=== PATIENT | female | born 1995 | race Caucasian/White ===

== ENCOUNTER 2020-02-10 03:21 | Inpatient (IN) | payer BC ==
[~2020-02-10 03:21] MED LIST: Bupivacaine 0.25% 10 ML SDV ONE
[2020-02-10] MEDS ORDERED: Oxytocin/Lactated Ringers 10 UNIT/1,000 ML BAG IV SCH (03:30)
[2020-02-10] MEDS ORDERED: Lidocaine 1% 50 ML MDV INJECT ONE (03:30)
[2020-02-10] MEDS ORDERED: Nalbuphine 10 MG/ML Syringe IVPUSH PRN (03:30)
[2020-02-10] MEDS ORDERED: Calcium Carbonate 500 MG Tab.Chew PO PRN (03:30)
[2020-02-10] MEDS ORDERED: Sodium Chloride 0.9% 10 ML Syringe FLUSH PRN ×2 (03:30→05:56)
[2020-02-10] MEDS: Lactated Ringers 1,000 ML IV SCH ×3 (04:00→05:11)
[2020-02-10] MEDS ORDERED: fentaNYL 100 MCG/2 ML SDV ONE (04:11)
[2020-02-10] MEDS ORDERED: ePHEDrine 50 MG/ML SDV IVPUSH PRN ×2 (04:31→08:32)
[2020-02-10] MEDS ORDERED: Bupivacaine/fentaNYL/NS 100 ML Bag EPIDUR PRN (04:31)
[2020-02-10] MEDS ORDERED: diphenhydrAMINE 50 MG/ML SDV IVPUSH PRN ×2 (04:31→08:32)
[2020-02-10] MEDS ORDERED: fentaNYL 100 MCG/2 ML SDV EPIDUR PRN (04:31)
--- NOTE | 2020-02-10 04:52 | PCM.PREANE ---
Preanesthetic Assessment - Procedure Proposed Procedure: spinal for labor and delivery - Anesthesia/Transfusion/Family Hx Anesthesia History: No Prior Anesthesia Family History of Anesthesia Reaction: No Transfusion History: No Prior Transfusion(s) - Review of Systems General: No Symptoms Pulmonary: No Symptoms Cardiovascular: No Symptoms Gastrointestinal: No Symptoms Neurological: No Symptoms Other: Reports: Depression, Anxiety - Physical Assessment Vital Signs: 147/95 86 20 99% Height: 5 ft 4 in Weight: 79.832 kg ASA Class: 2 Mental Status: Alert & Oriented x3 Airway Class: Mallampati = 1 Dentition: Reports: Normal Dentition Thyro-Mental Finger Breadths: 3 Mouth Opening Finger Breadths: 3 ROM/Head Extension: Full Lungs: Clear to Auscultation, Normal Respiratory Effort Cardiovascular: Regular Rate, Regular Rhythm, No Murmurs - Lab Values: Laboratory Last Values WBC 12.73 K/mm3 (3.98-10.04) H 02/10/20 03:41 RBC 4.76 M/mm3 (3.98-5.22) 02/10/20 03:41 Hgb 13.8 gm/dl (11.2-15.7) 02/10/20 03:41 Hct 41.9 % (34.1-44.9) 02/10/20 03:41 MCV 88.0 fl (79.4-94.8) 02/10/20 03:41 MCH 29.0 pg (25.6-32.2) 02/10/20 03:41 MCHC 32.9 g/dl (32.2-35.5) 02/10/20 03:41 RDW Std Deviation 46.3 fL (36.4-46.3) 02/10/20 03:41 Plt Count 205 K/mm3 (182-369) 02/10/20 03:41 MPV 10.8 fl (9.4-12.3) 02/10/20 03:41 Neut % (Auto) 74.5 % (34.0-71.1) H 02/10/20 03:41 Lymph % (Auto) 16.0 % (19.3-51.7) L 02/10/20 03:41 [place] % (Auto) 8.7 % (4.7-12.5) 02/10/20 03:41 Eos % (Auto) 0.4 (0.7-5.8) L 02/10/20 03:41 Baso % (Auto) 0.2 % (0.1-1.2) 02/10/20 03:41 Neut # (Auto) 9.48 K/mm3 (1.56-6.13) H 02/10/20 03:41 Lymph # (Auto) 2.04 K/mm3 (1.18-3.74) 02/10/20 03:41 [place] # (Auto) 1.11 K/mm3 (0.24-0.36) H 02/10/20 03:41 Eos # (Auto) 0.05 K/mm3 (0.04-0.36) 02/10/20 03:41 Baso # (Auto) 0.02 K/mm3 (0.01-0.08) 02/10/20 03:41 - Allergies Allergies/Adverse Reactions: Allergies Allergy/AdvReac Type Severity Reaction Status Date / Time No Known Allergies Allergy Verified 02/10/20 03:48 - Blood Blood Available: No - Acknowledgements Anesthesia Type Planned: Spinal Pt an Appropriate Candidate for the Planned Anesthesia: Yes Alternatives and Risks of Anesthesia Discussed w Pt/Guardian: Yes Pt/Guardian Understands and Agrees with Anesthesia Plan: Yes PreAnesthesia Questionnaire HEENT History: Reports: None Cardiovascular History: Reports: None Respiratory History: Reports: None Gastrointestinal History: Reports: GERD, Hiatal Hernia Genitourinary History: Reports: None 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 : 1 (38 weeks) Para: 0 Musculoskeletal History: Reports: None Neurological History: Reports: None Psychiatric History: Reports: Depression Endocrine/Metabolic History: Reports: None Hematologic History: Reports: None Immunologic History: Reports: None Oncologic (Cancer) History: Reports: None Dermatologic History: Reports: None - Infectious Disease History Infectious Disease History: Reports: None - Past Surgical History Head Surgeries/Procedures: Reports: None - History Comment History Comment: meds- vits and lexapro and prevacid - SUBSTANCE USE Smoking Status *Q: Never Smoker Tobacco Use Within Last Twelve Months: No Second Hand Smoke Exposure: No Days Per Week of Alcohol Use: 0 Recreational Drug Use History: No - CURRENT (IN HOUSE) MEDS Current Meds: Current Medications Calcium Carbonate/Glycine (Tums) 1,000 mg PO Q2H PRN PRN Reason: Indigestion Diphenhydramine HCl (Benadryl) 25 mg IVPUSH Q6H PRN PRN Reason: pruritis Ephedrine Sulfate (Ephedrine Sulfate) 5 mg IVPUSH ASDIRECTED PRN PRN Reason: Hypotension Fentanyl (Sublimaze) 100 mcg EPIDUR Q3H PRN PRN Reason: Pain Fentanyl/Bupivacaine HCl (Fentanyl/Bupivacaine/Ns 2 Mcg-0.125% 100 Ml) 100 ml EPIDUR ASDIRECTED PRN PRN Reason: Pain Oxytocin/Lactated Ringer's (Pitocin In Lr 10 Units/1,000 Ml) 10 unit in 1,000 mls @ 500 mls/hr IV .CONTINUOUS SEMAJ Lactated Ringer's (Ringers, Lactated) 1,000 mls @ 100 mls/hr IV ASDIRECTED SEMAJ Nalbuphine HCl (Nubain) 10 mg IVPUSH Q2H PRN PRN Reason: Pain Sodium Chloride (Saline Flush) 10 ml FLUSH ASDIRECTED PRN PRN Reason: Keep Vein Open Discontinued Medications Fentanyl (Sublimaze) Confirm Administered Dose 100 mcg .ROUTE .STK-MED ONE Stop: 02/10/20 04:12 Lidocaine HCl (Xylocaine 1%) 20 ml INJECT ONETIME ONE Stop: 02/10/20 03:31
[2020-02-10] MEDS ORDERED: Citric Acid/Sodium Citrate Solution 30 ML Cup PO ONE (05:56)
[2020-02-10] MEDS ORDERED: Azithromycin 500 MG in Sodium Chloride 0.9% 250 ML IV ONE (05:56)
[2020-02-10] MEDS ORDERED: Metoclopramide 10 MG/2 ML SDV IVPUSH ONE (05:56)
[2020-02-10] MEDS ORDERED: Metoclopramide 10 MG/2 ML SDV ONE (05:57)
[2020-02-10] MEDS ORDERED: Citric Acid/Sodium Citrate Solution 30 ML Cup ONE (05:57)
[2020-02-10] MEDS ORDERED: Lactated Ringers 1,000 ML IV SCH (06:00)
[2020-02-10] MEDS ORDERED: Ketorolac 30 MG/ML SDV ONE (06:02)
[2020-02-10] MEDS ORDERED: Ondansetron 4 MG/2 ML SDV ONE (06:02)
[2020-02-10] MEDS ORDERED: Morphine PF 1 MG/ML Amp ONE (06:02)
[2020-02-10] MEDS ORDERED: ceFAZolin 1 GM Vial ONE ×2 (06:02→06:07)
[2020-02-10] MEDS ORDERED: Propofol 200 MG/20 ML SDV ONE (06:04)
[2020-02-10] MEDS ORDERED: Succinylcholine/Sod PF 100 MG/5 ML SYRINGE IV ONE (06:05)
[2020-02-10] MEDS ORDERED: Lidocaine 1% 4 ML ONE (06:05)
[2020-02-10] MEDS ORDERED: Bupivacaine 0.5% 30 ML SDV ONE (06:10)
[2020-02-10] MEDS ORDERED: fentaNYL 250 MCG/5 ML SDV ONE (06:12)
[2020-02-10] MEDS ORDERED: fentaNYL 100 MCG/2 ML SDV IVPUSH PRN (06:14)
[2020-02-10] MEDS ORDERED: HYDROmorphone 0.5 MG/0.5 ML Syringe IVPUSH PRN (06:14)
[2020-02-10] MEDS ORDERED: Ondansetron 4 MG/2 ML SDV IVPUSH PRN ×2 (06:14→09:18)
[2020-02-10] MEDS ORDERED: Dexamethasone 4 MG/ML SDV ONE (06:32)
--- NOTE | 2020-02-10 07:10 | PCM.POSTAN ---
POST ANESTHESIA ASSESSMENT - MENTAL STATUS Mental Status: Alert, Oriented - VITAL SIGNS Vital Signs: 99% 120/96 105 14 97.1 - RESPIRATORY Respiratory Status: Respiratory Rate WNL, Airway Patent, O2 Saturation Stable, Supplemental Oxygen - CARDIOVASCULAR CV Status: Pulse Rate WNL, Blood Pressure Stable - GASTROINTESTINAL GI Status: No Symptoms - PAIN Pain Score: 0 - POST OP HYDRATION Hydration Status: Adequate & Stable
--- NOTE | 2020-02-10 07:23 | PCM.HP.2 ---
H&P History of Present Illness - General Date of Service: 02/10/20 Admit Problem/Dx: Admission Diagnosis/Problem Admission Diagnosis/Problem Active labor - History of Present Illness Initial Comments - Free Text/Narative: 24 year old at 38w2 here in active labor - Related Data Allergies/Adverse Reactions: Allergies Allergy/AdvReac Type Severity Reaction Status Date / Time No Known Allergies Allergy Verified 02/10/20 03:48 Past Medical History HEENT History: Reports: None Cardiovascular History: Reports: None Respiratory History: Reports: None Gastrointestinal History: Reports: GERD, Hiatal Hernia Genitourinary History: Reports: None 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 Musculoskeletal History: Reports: None Neurological History: Reports: None Psychiatric History: Reports: Depression Endocrine/Metabolic History: Reports: None Hematologic History: Reports: None Immunologic History: Reports: None Oncologic (Cancer) History: Reports: None Dermatologic History: Reports: None - Infectious Disease History Infectious Disease History: Reports: None - Past Surgical History Head Surgeries/Procedures: Reports: None - History Comment History Comment: meds- vits and lexapro and prevacid Social & Family History - Family History Family Medical History: Noncontributory - Tobacco Use Smoking Status *Q: Never Smoker Second Hand Smoke Exposure: No - Alcohol Use Days Per Week of Alcohol Use: 0 - Recreational Drug Use Recreational Drug Use: No H&P Review of Systems - Review of Systems: Review Of Systems: See Below General: Reports: No Symptoms HEENT: Reports: No Symptoms Pulmonary: Reports: No Symptoms Cardiovascular: Reports: No Symptoms Gastrointestinal: Reports: No Symptoms Genitourinary: Reports: No Symptoms Musculoskeletal: Reports: No Symptoms Skin: Reports: No Symptoms Psychiatric: Reports: No Symptoms Neurological: Reports: No Symptoms Hematologic/Lymphatic: Reports: No Symptoms Immunologic: Reports: No Symptoms Exam - Exam Exam: See Below - Vital Signs Vital Signs: Last Vital Signs Temp 36.2 C 02/10/20 07:04 Pulse Resp 14 02/10/20 07:04 BP 123/85 02/10/20 07:04 Pulse Ox 100 02/10/20 07:04 Weight: 79.832 kg - Exam General: Alert, Oriented, 4 HEENT: PERRLA, Hearing Intact, Mucosa Moist & [place], Nares Patent, Normal Nasal Septum, Posterior Pharynx Clear, Conjunctiva Clear, EOMI, EACs Clear, TMs Clear Neck: Supple, Trachea Midline, 2 Lungs: Clear to Auscultation, Normal Respiratory Effort Cardiovascular: Regular Rate, Regular Rhythm GI/Abdominal Exam: Normal Bowel Sounds, Soft, Non-Tender, No Organomegaly, No Distention, No Abnormal Bruit, No Mass, Pelvis Stable Rectal (Female) Exam: Normal Exam Back Exam: Normal Inspection, Full Range of Motion, NT Extremities: Normal Inspection, Normal Range of Motion, Non-Tender, No Pedal Edema, Normal Capillary Refill Skin: Warm, Dry, Intact Neurological: Cranial Nerves Intact, Reflexes Equal Bilateral Neuro Extensive - Mental Status: Alert, Oriented x3, Normal Mood/Affect, Normal Cognition Neuro Extensive - Motor, Sensory, Reflexes: CN II-XII Intact, Normal Gait, Normal Reflexes Psychiatric: Alert, Normal Affect, Normal Mood - Patient Data Lab Results Last 24 hrs: Laboratory Results - last 24 hr 02/10/20 02/10/20 Range/Units 03:41 04:26 WBC 12.73 H (3.98-10.04) K/mm3 RBC 4.76 (3.98-5.22) M/mm3 Hgb 13.8 (11.2-15.7) gm/dl Hct 41.9 (34.1-44.9) % MCV 88.0 (79.4-94.8) fl MCH 29.0 (25.6-32.2) pg MCHC 32.9 (32.2-35.5) g/dl RDW Std Deviation 46.3 (36.4-46.3) fL Plt Count 205 (182-369) K/mm3 MPV 10.8 (9.4-12.3) fl Neut % (Auto) 74.5 H (34.0-71.1) % Lymph % (Auto) 16.0 L (19.3-51.7) % [place] % (Auto) 8.7 (4.7-12.5) % Eos % (Auto) 0.4 L (0.7-5.8) Baso % (Auto) 0.2 (0.1-1.2) % Neut # (Auto) 9.48 H (1.56-6.13) K/mm3 Lymph # (Auto) 2.04 (1.18-3.74) K/mm3 [place] # (Auto) 1.11 H (0.24-0.36) K/mm3 Eos # (Auto) 0.05 (0.04-0.36) K/mm3 Baso # (Auto) 0.02 (0.01-0.08) K/mm3 COVID-19 ([place]) Negative (NEGATIVE) Result Diagrams: 02/10/20 03:41 Sepsis Event Note - Evaluation Sepsis Screening Result: No Definite Risk - Focused Exam Vital Signs: Vital Signs Temp Resp BP Pulse Ox Pulse Ox 02/10/20 07:04 36.2 C 14 123/85 100 100 Problem List Initiated/Reviewed/Updated: Yes Orders Last 24hrs: Active Orders 24 hr Category Date Time Status Patient Status [ADT] Routine ADT 02/10/20 03:30 Active Activity as Tolerated [RC] PFP Care 02/10/20 03:30 Active Communication Order [RC] ASDIRECTED Care 02/10/20 03:30 Active Communication Order [RC] ASDIRECTED Care 02/10/20 06:14 Active Communication Order [RC] ROUTINE Care 02/10/20 05:57 Active Cooling Warming Measures [RC] ASDIRECTED Care 02/10/20 06:14 Active Heart Tones [RC] ASDIRECTED Care 02/10/20 03:30 Active Heart Tones [RC] PER UNIT ROUTINE Care 02/10/20 05:57 Active Non Stress Test [RC] PER UNIT ROUTINE Care 02/10/20 03:30 Active Notify Provider [RC] ASDIRECTED Care 02/10/20 04:31 Active Notify Provider [RC] PFP Care 02/10/20 03:30 Active Notify Provider [RC] PRN Care 02/10/20 03:30 Active Oxygen Therapy [RC] ASDIRECTED Care 02/10/20 06:14 Active Peripheral IV Care [RC] . DIRECTED Care 02/10/20 05:57 Active Peripheral IV Care [RC] Q2HR Care 02/10/20 03:30 Active Procedure Site Prep Instruct [RC] ASDIRECTED Care 02/10/20 05:57 Active Pulse Oximetry [RC] ASDIRECTED Care 02/10/20 06:14 Active Pump Management, Intrathecal [RC] ASDIRECTED Care 02/10/20 03:31 Active Urinary Catheter Assessment [RC] ASDIRECTED Care 02/10/20 03:30 Active Verify Patient Consent Obtain [RC] PER UNIT ROUTINE Care 02/10/20 05:57 Active Vital Signs [RC] PER UNIT ROUTINE Care 02/10/20 03:30 Active Vital Signs [RC] PFP Care 02/10/20 05:57 Active Vital Signs [RC] Q15M Care 02/10/20 06:14 Active Regular Diet [DIET] Diet 02/10/20 Breakfast Active BLOOD BANK HOLD SPECIMEN [BBK] Stat Lab 02/10/20 03:30 Ordered RAPID PLASMA REAGIN,RPR [CHEM] Stat Lab 02/10/20 03:41 Received TYPE AND SCREEN [BBK] Routine Lab 02/10/20 03:41 Received Bupivacaine/fentaNYL/NS [fentaNYL/Bupivacaine/NS 2 MCG- Med 02/10/20 04:31 Active 0.125% 100 ML] 100 ml EPIDUR ASDIRECTED PRN Calcium Carbonate [Tums] Med 02/10/20 03:30 Active 1,000 mg PO Q2H PRN HYDROmorphone [Dilaudid] Med 02/10/20 06:14 Active 0.5 mg IVPUSH Q10M PRN Lactated Ringers [Ringers, Lactated] 1,000 ml Med 02/10/20 03:30 Active IV ASDIRECTED Lactated Ringers [Ringers, Lactated] 1,000 ml Med 02/10/20 06:00 Active IV ASDIRECTED Nalbuphine [Nubain] Med 02/10/20 03:30 Active 10 mg IVPUSH Q2H PRN Ondansetron [Zofran] Med 02/10/20 06:14 Active 4 mg IVPUSH ONETIME PRN Oxytocin/Lactated Ringers [Pitocin in LR 10 Units/1,000 Med 02/10/20 03:30 Active ML] 10 unit in 1,000 ml IV .CONTINUOUS Sodium Chloride 0.9% [Saline Flush] Med 02/10/20 03:30 Active 10 ml FLUSH ASDIRECTED PRN Sodium Chloride 0.9% [Saline Flush] Med 02/10/20 05:56 Active 10 ml FLUSH ASDIRECTED PRN diphenhydrAMINE [Benadryl] Med 02/10/20 04:31 Active 25 mg IVPUSH Q6H PRN ePHEDrine [ePHEDrine sulfate] Med 02/10/20 04:31 Active 5 mg IVPUSH ASDIRECTED PRN fentaNYL [Sublimaze] Med 02/10/20 04:31 Active 100 mcg EPIDUR Q3H PRN fentaNYL [Sublimaze] Med 02/10/20 06:14 Active 50 mcg IVPUSH Q5M PRN Electronic Heart Tones Ext w TOCO [WOMSER] Oth 02/10/20 03:30 Ordered Routine Electronic Heart Tones Internal [WOMSER] Per Unit Oth 02/10/20 03:30 Ordered Routine Peripheral IV Insertion Adult [OM.PC] Routine Oth 02/10/20 03:30 Ordered Peripheral IV Insertion Adult [OM.PC] Routine Oth 02/10/20 05:57 Ordered Schedule Procedure [COMM] Per Unit Routine Ot 02/10/20 05:57 Ordered Resuscitation Status Routine Resus Stat 02/10/20 03:30 Ordered Medication Orders Calcium Carbonate/Glycine (Tums) 1,000 mg PO Q2H PRN PRN Reason: Indigestion Diphenhydramine HCl (Benadryl) 25 mg IVPUSH Q6H PRN PRN Reason: pruritis Ephedrine Sulfate (Ephedrine Sulfate) 5 mg IVPUSH ASDIRECTED PRN PRN Reason: Hypotension Fentanyl (Sublimaze) 100 mcg EPIDUR Q3H PRN PRN Reason: Pain Fentanyl (Sublimaze) 50 mcg IVPUSH Q5M PRN PRN Reason: Pain Fentanyl/Bupivacaine HCl (Fentanyl/Bupivacaine/Ns 2 Mcg-0.125% 100 Ml) 100 ml EPIDUR ASDIRECTED PRN PRN Reason: Pain Hydromorphone HCl (Dilaudid) 0.5 mg IVPUSH Q10M PRN PRN Reason: Pain (severe 7-10) Oxytocin/Lactated Ringer's (Pitocin In Lr 10 Units/1,000 Ml) 10 unit in 1,000 mls @ 500 mls/hr IV .CONTINUOUS SEMAJ Lactated Ringer's (Ringers, Lactated) 1,000 mls @ 100 mls/hr IV ASDIRECTED SEMAJ Last Admin: 02/10/20 05:11 Dose: 100 mls/hr Documented by: Infusion: 02/10/20 05:11 Dose: 100 mls/hr Documented by: Admin: 02/10/20 05:10 Dose: 100 mls/hr Documented by: Infusion: 02/10/20 05:10 Dose: 100 mls/hr Documented by: Admin: 02/10/20 04:00 Dose: 100 mls/hr Documented by: JOHNNY Lactated Ringer's (Ringers, Lactated) 1,000 mls @ 125 mls/hr IV ASDIRECTED SEMAJ Nalbuphine HCl (Nubain) 10 mg IVPUSH Q2H PRN PRN Reason: Pain Last Admin: 02/10/20 04:00 Dose: 10 mg Documented by: JOHNNY Ondansetron HCl (Zofran) 4 mg IVPUSH ONETIME PRN PRN Reason: Nausea/Vomiting Sodium Chloride (Saline Flush) 10 ml FLUSH ASDIRECTED PRN PRN Reason: Keep Vein Open Sodium Chloride (Saline Flush) 10 ml FLUSH ASDIRECTED PRN PRN Reason: Keep Vein Open Assessment/Plan Comment:: Term labor. Admit, AROM, anticipate
--- NOTE | 2020-02-10 07:24 | PCM.SN.2 ---
- Free Text/Narrative Note: Speculum exam for odd cervical exam. No placenta visualized. After pushing x2 contractions repeat examination revealed breech. Proceed to primary section
--- NOTE | 2020-02-10 07:29 | PCM.OPNOTE ---
- General Post-Op/Procedure Note Date of Surgery/Procedure: 02/10/20 Operative Procedure(s): primary section Findings: Viable female, breech, 8/9 APGARS at 0627. Pre Op Diagnosis: breech Post-Op Diagnosis: Same Anesthesia Technique: General ET Tube Primary Surgeon: Samantha Galindo Marble Installer: Monserrat Sarmiento EBL in mLs: 500 Complications: None Condition: Good Free Text/Narrative:: The patient was taken to the operating room where general anesthesia was initiated without difficulty. The patient was prepped and draped in the usual sterile fashion in the dorsal supine position with a leftward tilt. A Pfannenstiel skin incision was made with the scalpel and carried through to the underlying layer of fascia. Fashia was bluntly . The rectus muscles were dissected in the midline. The peritoneum was entered bluntly; this incision was extended superiorly and inferiorly with good visualization of the bladder. The bladder blade was inserted. The lower uterine segment was incised in a transverse fashion using the scalpel and with digital traction. The infant was subsequently delivered normal breech maneuvers. The cord was clamped and cut. The was subsequently handed to the awaiting assistant construction superintendent whose presence had been requested.. The placenta was delivered spontaneously intact with a three-vessel cord noted. The uterus was exteriorized and cleared of all clots and debris. The uterine incision was repaired in 2 layers using 0 monocryl. Hemostasis was visualized. Hemostasis was visualized bilaterally. The uterus was returned to the abdomen. The uterine incision was reexamined and it was noted to be hemostatic. The pelvis was copiously irrigated. The fascia was closed with 1 PDS suture, and the skin was closed with 3-0 monocryl. Sponge, lap, and instrument counts were correct x2. The patient was stable at the comple tion of the procedure and was subsequently transferred to the recovery room in stable condition.
[2020-02-10] MEDS ORDERED: Naloxone 0.4 MG/ML SDV IVPUSH PRN (08:32)
[2020-02-10] MEDS ORDERED: Dextrose 5%-Lactated Ringers 1,000 ML IV SCH (08:32)
[2020-02-10] MEDS ORDERED: Acetaminophen/oxyCODONE 325-5 MG Tab PO PRN (09:25)
[2020-02-10] MEDS: Acetaminophen/oxyCODONE 325-5 MG Tab PO PRN ×2 (10:59→22:49)
--- NOTE | 2020-02-10 11:04 | PCM48HPAN ---
Post Anesthesia Note - EVALUATION WITHIN 48HRS OF ANESTHETIC Vital Signs in Normal Range: Yes Patient Participated in Evaluation: Yes Respiratory Function Stable: Yes Airway Patent: Yes Cardiovascular Function Stable: Yes Hydration Status Stable: Yes Pain Control Satisfactory: Yes Nausea and Vomiting Control Satisfactory: Yes Mental Status Recovered: Yes Vital Signs: Last Vital Signs Temp 36.6 C 02/10/20 08:40 Pulse 88 02/10/20 10:00 Resp 16 02/10/20 08:40 BP 144/89 H 02/10/20 10:00 Pulse Ox 98 02/10/20 08:00
[2020-02-10] MEDS: Ketorolac 30 MG/ML SDV IVPUSH SCH ×2 (13:18→18:40)
[2020-02-10] MEDS ORDERED: Simethicone 80 MG Tab.Chew PO PRN (22:45)
[2020-02-11] MEDS: Ketorolac 30 MG/ML SDV IVPUSH SCH (01:55)
--- NOTE | 2020-02-11 07:44 | PCM.SN.2 ---
- Free Text/Narrative Note: note: Patient is doing well in the period. Moderate lochia, voiding well, ambulated without problems. No problems with nursing. She is s/p section due to breech presentation. Patient is afebrile, vital signs are stable Abdomen is flat, soft, uterus is below the umbilicus and is firm and nontender. Incision is healing well, no discharge or swelling. Legs are nontender. Assessment: recovery going well. Plan: Routine care. Patient be discharged home within the next 24-48 hours.
[2020-02-11] MEDS: Acetaminophen/oxyCODONE 325-5 MG Tab PO PRN (08:29)
[2020-02-11] MEDS: Ibuprofen 600 MG Tab PO PRN ×2 (14:26→22:24)
[2020-02-12] MEDS: Ibuprofen 600 MG Tab PO PRN (08:08)
--- NOTE | 2020-02-12 11:30 | PCM.DCSUM1 ---
Discharge Summary - Hospital Course Free Text/Narrative:: 24 year old at 38w2 here in active labor, admitted on 02/10/2020 early a.m. Labor to complete cervical dilation, was found to have breech presenting baby and was taken to surgery to do a primary low uterine segment transverse section through Pfannenstiel skin incision with anesthesia. Patient had had a spinal block for labor analgesia late in as she was admitted at 7 cm dilation. Postoperatively patient is doing well. She is having some frustration with nursing but has had nursing support with consultation. Her vital signs been stable. She has been afebrile. Abdomen is flat, soft, nontender. Incision appears to be healing well with Steri-Strips in place. No evidence of hematoma, seroma or infection. Legs are nontender. Patient is desiring discharge home. Diagnosis: Stroke: No - Discharge Data Discharge Date: 02/12/20 Discharge Disposition: Home, Self-Care 01 Condition: Good - Referral to Home Health Primary Care Physician: Samantha Marcelino MD - Patient Summary/Data Operative Procedure(s) Performed: primary section - Patient Instructions Diet: Regular Diet as Tolerated (Nursing diet with increased calories and calcium as recommended) Activity: As Tolerated (No lifting greater than 15 pounds or driving a car x1 week. No intercourse or tampons until seen back in clinic.) Driving: Do Not Drive Showering/Bathing: May Shower Wound/Incision Care: Keep Operative Site/Wound Site Clean and Dry Notify Provider of: Fever, Increased Pain, Swelling and Redness, Nausea and/or Vomiting - Discharge Plan Home Medications: Home Meds Acetaminophen/oxyCODONE [Percocet 325-5 MG] 1 tab PO Q4H PRN tablet 02/12/20 [Rx] Ibuprofen [Motrin] 600 mg PO Q4HR PRN tablet 02/12/20 [Rx] Referrals: Samantha Marcelino MD [Primary Care Provider] - (Patient is to call [facility] to make an appointment for postoperative evaluation.) - Discharge Summary/Plan Comment DC Time >30 min.: No Discharge Summary/Plan Comment: Discharge instructions: 1. Discharge home 2. Diet, activity and follow-up discussed with patient. Recommend nursing diet with increased calories and calcium. 3. Precautions given concern increased pain, bleeding, temperature, signs/symptoms of DVT/PE. 4. Medications per home medication was printed, discussed with and given to the patient. 5. Return to clinic[facility]-the patient is to call for an appointment.. Diagnosis: 1. Term -delivered 2. Hai breech presentation Condition: Good - Patient Data Vitals - Most Recent: Last Vital Signs Temp 37.3 C 02/12/20 03:54 Pulse 86 02/12/20 03:54 Resp 14 02/12/20 03:54 BP 130/80 02/12/20 03:54 Pulse Ox 96 02/12/20 03:54 Weight - Most Recent: 79.832 kg I&O - Last 24 hours: Intake & Output 02/11/20 02/12/20 02/12/20 22:59 06:59 14:59 Intake Total 840 Balance 840 Med Orders - Current: Current Medications Diphenhydramine HCl (Benadryl) 25 mg IVPUSH Q6H PRN PRN Reason: Itching or Nausea Ephedrine Sulfate (Ephedrine Sulfate) 5 mg IVPUSH SEECOMMENT PRN PRN Reason: Other Ibuprofen (Motrin) 600 mg PO Q4HR PRN PRN Reason: Pain Last Admin: 02/12/20 08:08 Dose: 600 mg Documented by: Naloxone HCl (Narcan) 0.1 mg IVPUSH SEECOMMENT PRN PRN Reason: Respiratory Depression Ondansetron HCl (Zofran) 4 mg IVPUSH Q4HR PRN PRN Reason: Nausea/Vomiting Oxycodone/Acetaminophen (Percocet 325-5 Mg) 2 tab PO Q4H PRN PRN Reason: Pain (moderate 4-6) Last Admin: 02/11/20 08:29 Dose: 2 tab Documented by: Oxycodone/Acetaminophen (Percocet 325-5 Mg) 1 tab PO Q4H PRN PRN Reason: Pain (moderate 4-6) Simethicone (Simethicone) 80 mg PO Q6H PRN PRN Reason: gas pain Last Admin: 02/10/20 23:03 Dose: 80 mg Documented by: Discontinued Medications Bupivacaine HCl (Marcaine 0.5%) Confirm Administered Dose 30 ml .ROUTE .STK-MED ONE Stop: 02/10/20 06:11 Last Admin: 02/10/20 06:48 Dose: 20 ml Documented by: Bupivacaine HCl (Sensorcaine-Mpf 0.25%) 10 ml .ROUTE .[facility] ONE Stop: 02/10/20 00:01 Calcium Carbonate/Glycine (Tums) 1,000 mg PO Q2H PRN PRN Reason: Indigestion Cefazolin Sodium (Ancef) Confirm Administered Dose 2 gm .ROUTE .[facility] ONE Stop: 02/10/20 06:03 Cefazolin Sodium (Ancef) Confirm Administered Dose 2 gm .ROUTE .[facility] ONE Stop: 02/10/20 06:08 Citric Acid/Sodium Citrate (Bicitra Solution) Confirm Administered Dose 30 ml .ROUTE .[facility] ONE Stop: 02/10/20 05:58 Last Admin: 02/10/20 06:02 Dose: 30 ml Documented by: Citric Acid/Sodium Citrate (Bicitra Solution) 30 ml PO ONETIME ONE Stop: 02/10/20 05:57 Last Admin: 02/10/20 06:47 Dose: Not Given Documented by: Dexamethasone (Dexamethasone) Confirm Administered Dose 8 mg .ROUTE .[facility] ONE Stop: 02/10/20 06:33 Diphenhydramine HCl (Benadryl) 25 mg IVPUSH Q6H PRN PRN Reason: pruritis Ephedrine Sulfate (Ephedrine Sulfate) 5 mg IVPUSH ASDIRECTED PRN PRN Reason: Hypotension Fentanyl (Sublimaze) Confirm Administered Dose 100 mcg .ROUTE .[facility] ONE Stop: 02/10/20 04:12 Last Admin: 02/10/20 19:26 Dose: Not Given Documented by: Fentanyl (Sublimaze) 100 mcg EPIDUR Q3H PRN PRN Reason: Pain Fentanyl (Sublimaze) Confirm Administered Dose 250 mcg .[address]TE .[facility] ONE Stop: 02/10/20 06:13 Fentanyl (Sublimaze) 50 mcg IVPUSH Q5M PRN PRN Reason: Pain Last Admin: 02/10/20 07:41 Dose: 50 mcg Documented by: Fentanyl/Bupivacaine HCl (Fentanyl/Bupivacaine/Ns 2 Mcg-0.125% 100 Ml) 100 ml EPIDUR ASDIRECTED PRN PRN Reason: Pain Hydromorphone HCl (Dilaudid) 0.5 mg IVPUSH Q10M PRN PRN Reason: Pain (severe 7-10) Oxytocin/Lactated Ringer's (Pitocin In Lr 10 Units/1,000 Ml) 10 unit in 1,000 mls @ 500 mls/hr IV .CONTINUOUS [facility] Lactated Ringer's (Ringers, Lactated) 1,000 mls @ 100 mls/hr IV ASDIRECTED [facility] Last Admin: 02/10/20 05:11 Dose: 100 mls/hr Documented by: Lactated Ringer's (Ringers, Lactated) 1,000 mls @ 125 mls/hr IV ASDIRECTED [facility] Azithromycin 500 mg/ Sodium (Chloride) 250 mls @ 250 mls/hr IV ONETIME ONE Stop: 02/10/20 06:55 Last Admin: 02/10/20 06:10 Dose: 250 mls/hr Documented by: Lidocaine HCl (Xylocaine-Mpf 1%) Confirm Administered Dose 4 mls @ as directed .ROUTE .STK-MED ONE Stop: 02/10/20 06:06 Dextrose/Lactated Ringer's (Dextrose 5%-Lactated Ringers) 1,000 mls @ 125 mls /hr IV ASDIRECTED [facility] Stop: 02/10/20 16:31 Last Admin: 02/10/20 10:46 Dose: 125 mls/hr Documented by: Ketorolac Tromethamine (Toradol) Confirm Administered Dose 30 mg .ROUTE .STK-MED ONE Stop: 02/10/20 06:03 Ketorolac Tromethamine (Toradol) 30 mg IVPUSH Q6H [facility] Last Admin: 02/11/20 01:55 Dose: 30 mg Documented by: Lidocaine HCl (Xylocaine 1%) 20 ml INJECT ONETIME ONE Stop: 02/10/20 03:31 Last Admin: 02/10/20 19:26 Dose: Not Given Documented by: Metoclopramide HCl (Reglan) Confirm Administered Dose 10 mg .ROUTE .STK-MED ONE Stop: 02/10/20 05:58 Last Admin: 02/10/20 06:02 Dose: 10 mg Documented by: Metoclopramide HCl (Reglan) 10 mg IVPUSH ONETIME ONE Stop: 02/10/20 05:57 Last Admin: 02/10/20 06:47 Dose: Not Given Documented by: Morphine Sulfate (Duramorph Pf) Confirm Administered Dose 1 mg .ROUTE .STK-MED ONE Stop: 02/10/20 06:03 Nalbuphine HCl (Nubain) 10 mg IVPUSH Q2H PRN PRN Reason: Pain Last Admin: 02/10/20 04:00 Dose: 10 mg Documented by: Ondansetron HCl (Zofran) Confirm Administered Dose 4 mg .ROUTE .STK-MED ONE Stop: 02/10/20 06:03 Ondansetron HCl (Zofran) 4 mg IVPUSH ONETIME PRN PRN Reason: Nausea/Vomiting Propofol (Diprivan 20 Ml) Confirm Administered Dose 200 mg .ROUTE .STK-MED ONE Stop: 02/10/20 06:05 Sodium Chloride (Saline Flush) 10 ml FLUSH ASDIRECTED PRN PRN Reason: Keep Vein Open Sodium Chloride (Saline Flush) 10 ml FLUSH ASDIRECTED PRN PRN Reason: Keep Vein Open
== END 2020-02-12 15:25 | disposition home or self-care (01) | DRG 540 ==
LOC: JD.OBCHECK 03:21 → JD.OB 03:54 → OBSVTOIN 06:27 → JD.OB 06:28
PROVIDERS: ADMIT Obstetrics & Gynecology; ATTEND Obstetrics & Gynecology
PROC: 10D00Z1 Extraction of Products of Conception, Low, Open Approach (ICD-10-PCS; principal; 2020-02-10)
PROC: 10907ZC Drainage of Amniotic Fluid, Therapeutic from Products of Conception, Via Natural or Artificial Opening (ICD-10-PCS; 2020-02-10)
DX: O32.1XX0 Maternal care for breech presentation, not applicable or unspecified (principal); Z3A.38 38 weeks gestation of pregnancy; Z37.0 Single live birth; Z20.828 Contact with and (suspected) exposure to other viral communicable diseases
CPT/HCPCS: 01967; 01968; 36415; 51701; 51702; 59025; 80053; 85025; 86592; 86850; 86900; 86901; A9270-GY; J0330; J0456; J0690; J1100; J1885; J2001; J2274; J2300; J2405; J2704; J2765; J3010; J3490; J7050; J7120; J7121; U0002

== ENCOUNTER 2022-03-08 03:02 | Inpatient (IN) | payer BC ==
[2022-03-08] MEDS ORDERED: Calcium Carbonate 500 MG Tab.Chew PO PRN (03:18)
[2022-03-08] MEDS ORDERED: Sodium Chloride 0.9% 10 ML Syringe FLUSH PRN (03:18)
[2022-03-08] MEDS ORDERED: Nalbuphine HCl 10 MG/ 1ML Amp IVPUSH PRN (03:18)
[2022-03-08] MEDS ORDERED: Ondansetron 4 MG/2 ML SDV IVPUSH PRN (03:18)
[2022-03-08] MEDS ORDERED: Oxytocin/Lactated Ringers 10 UNIT/1,000 ML BAG IV SCH ×2 (03:30)
[2022-03-08] MEDS ORDERED: fentaNYL 100 MCG/2 ML SDV EPIDUR PRN (04:04)
[2022-03-08] MEDS ORDERED: diphenhydrAMINE 50 MG/ML SDV IVPUSH PRN (04:04)
[2022-03-08] MEDS ORDERED: ePHEDrine 50 MG/ML SDV IVPUSH PRN (04:04)
[2022-03-08] MEDS: Lactated Ringers 1,000 ML IV SCH ×3 (04:09→05:24)
[2022-03-08] MEDS: Bupivacaine/fentaNYL/NS 100 ML Bag EPIDUR PRN ×2 (04:26→04:27)
[2022-03-08] MEDS ORDERED: Bupivacaine 0.25% 10 ML SDV ONE (06:00)
[2022-03-08] MEDS ORDERED: Witch Hazel Medicated Pads 40/Jar TOP PRN (08:58)
[2022-03-08] MEDS ORDERED: Benzocaine/Menthol 20%-0.5% Spray 78 GM Cannister TOP PRN (08:58)
[2022-03-08] MEDS ORDERED: Sodium Chloride 0.9% 10 ML Syringe FLUSH SCH (09:00)
[2022-03-08] MEDS: Ibuprofen 600 MG Tab PO PRN ×3 (09:20→21:13)
[2022-03-09] MEDS: Ibuprofen 600 MG Tab PO PRN (07:45)
[2022-03-09] MEDS ORDERED: Docusate Sodium 100 MG Cap PO SCH (09:15)
== END 2022-03-09 09:45 | disposition home or self-care (01) | DRG 560 ==
LOC: JD.OBCHECK 03:02 → JD.OB 03:06 → JD.OBCHECK 03:10 → JD.OB 03:18 → OBSVTOIN 07:47 → JD.MS 07:48 → JD.OB 11:32
PROVIDERS: ADMIT Obstetrics & Gynecology; ATTEND Obstetrics & Gynecology
PROC: 10E0XZZ Delivery of Products of Conception, External Approach (ICD-10-PCS; principal; 2022-03-08)
PROC: 10907ZC Drainage of Amniotic Fluid, Therapeutic from Products of Conception, Via Natural or Artificial Opening (ICD-10-PCS; 2022-03-08)
PROC: 3E0R3BZ Introduction of Anesthetic Agent into Spinal Canal, Percutaneous Approach (ICD-10-PCS; 2022-03-08)
PROC: 00HU33Z Insertion of Infusion Device into Spinal Canal, Percutaneous Approach (ICD-10-PCS; 2022-03-08)
DX: O99.62 Diseases of the digestive system complicating childbirth (principal); K21.9 Gastro-esophageal reflux disease without esophagitis; Z37.0 Single live birth; O99.344 Other mental disorders complicating childbirth; F41.9 Anxiety disorder, unspecified; F32.A Depression, unspecified; Z3A.39 39 weeks gestation of pregnancy
CPT/HCPCS: 36415; 51702; 59025; 59409; 85025; 86592; 86850; 86900; 86901; A9270-GY; J2590; J3010; J3490; J7120